=== PATIENT | female | born 1985 ===

== ENCOUNTER 2019-11-20 08:43 | Observation (INO) | payer OTHER, SELFPAY ==
[2019-11-20] VITALS (7 sets, daily range): BP systolic 120–149; BP diastolic 58–70; PULSE 84–108; BMI 33.5
[2019-11-20] MEDS: TERBUTALINE SULFATE 1 MG/ML VIAL (09:18)
--- NOTE | 2019-11-20 09:32 | OBADM ---
This patient, Malissa Christian, admitted to the OB room OB Post 115 for observation. Patient/family oriented to hospital policies and general routines including ID bracelet, bed and alarms, visiting hours, pain management, procedures, bathroom and other care routines, personal items, smoking policy, room service/diet, and visiting hours. Patient/Family are encouraged to report perceived risks to care and to ask questions if they do not understand what they are told or what they should do.
[2019-11-20 10:05] LABS: Fetal Fibronectin Positive
--- NOTE | 2019-11-20 10:35 | PM.OBTRLD ---
OB - Triage/Final Diagnosis Visit Information Date of evaluation: 11/20/19 Reason for evaluation: threatened labor Evaluation Laboratory results: Laboratory Tests 11/20/19 09:25 Fibronectin Positive Vital signs: Vital Signs - 24 hr 11/20/19 08:51 11/20/19 09:01 11/20/19 09:16 Pulse Rate 87 84 90 Blood Pressure 149/70 H 120/65 129/69 11/20/19 09:31 11/20/19 09:46 11/20/19 10:01 Pulse Rate 96 108 H 99 Blood Pressure 130/58 L 131/70 122/60 11/20/19 10:16 Pulse Rate 98 Blood Pressure 126/66
== END 2019-11-20 10:50 | disposition home or self-care (01) ==
PROVIDERS: Admitting Provider Obstetrics & Gynecology; Visit Provider Obstetrics & Gynecology
DX: O47.9 False labor, unspecified (principal); Z3A.00 Weeks of gestation of pregnancy not specified
CPT/HCPCS: 82731; 96372; G0378; G0379; J3105

== ENCOUNTER 2020-02-23 10:24 | Outpatient (RCR) | payer OTHER, SELFPAY ==
[2020-01-19 11:28] VITALS: BP 115/68; PULSE 81
[2020-01-26 10:36] VITALS: BP 125/75; PULSE 107
[2020-02-02 09:34] VITALS: BP 129/79; PULSE 92
[2020-02-08 11:59] VITALS: BP 124/72; PULSE 103
[2020-02-14 09:10] VITALS: BP 124/68; PULSE 111
[2020-02-23 11:09] VITALS: BP 117/73; PULSE 96
== END 2020-02-28 10:30 | disposition home or self-care (01) ==
LOC: ANHOBOP 10:24
PROVIDERS: PCP Internal Medicine Geriatric Medicine; Visit Provider Obstetrics & Gynecology
DX: O69.89X0 Labor and delivery complicated by other cord complications, not applicable or unspecified (principal); Z3A.33 33 weeks gestation of pregnancy; Z3A.34 34 weeks gestation of pregnancy; Z3A.35 35 weeks gestation of pregnancy; Z3A.36 36 weeks gestation of pregnancy; Z3A.38 38 weeks gestation of pregnancy
CPT/HCPCS: 59025

== ENCOUNTER 2020-02-28 04:26 | Inpatient (IN) | payer OTHER, SELFPAY ==
[2020-02-28] VITALS (64 sets, daily range): BP systolic 104–150; BP diastolic 58–133; PULSE 75–122; RESP 16–18; TEMP 36.3–37.1; O2SAT 98–100; BMI 35.3
[2020-02-28] MEDS: LACTATED RINGERS 1,000 ML 125 ML IV CONT ×2 (04:50→05:38)
[2020-02-28 05:10] LABS: Basophils Absolute Auto 0.1 K/mm3 (0.0-0.1); Basophils Percent Auto 0.8 % (0.2-1.2); Eosinophils Absolute Auto 0.7 K/mm3 (0-0.3); Eosinophils Percent Auto 4.9 % (0-4.4); Hematocrit 38.7 % (37.0-47.0); Hemoglobin 13.2 g/dL (12.0-15.0); Immature Granulocyte Absolute 0.07 K/mm3 (0.00-0.031); Immature Granulocyte Percent A 0.5 % (0-0.5); Lymphocytes Absolute Auto 3.16 K/mm3 (0.9-3.2); Lymphocytes Percent Auto 23.9 % (18.3-44.2); Mean Corpuscular HGB Conc 34.1 g/dl (32-36); Mean Corpuscular Hemoglobin 30.2 pg (26-34); Mean Corpuscular Volume 88.6 fl (80-100); Mean Platelet Volume 9.7 fl (7.4-10.4); Monocytes Absolute Auto 1.2 K/mm3 (0.1-0.6); Neutrophils Percent Auto 60.9 % (45.5-73.1); Platelet Count Result 379 k/mm3 (150-375); Red Blood Count 4.37 M/mm3 (4.2-5.4); Red Cell Distribution Width 13.4 % (11.5-14.5); White Blood Count 13.2 K/mm3 (4.5-10.0)
--- NOTE | 2020-02-28 05:12 | LDADM ---
This patient, Malissa Christian, was admitted to Labor/Delivery/Recovery 108 on 02/28/20 at 04:37. Plans for labor, pain management and were discussed with patient. Patient/family oriented to hospital policies and general routines including ID bracelet, bed and alarms, visiting hours, pain management, procedures, bathroom and other care routines, personal items, smoking policy, room service/diet and guest tray routines, security routines, and visiting hours. Patient/Family are encouraged to report perceived risks to care and to ask questions if they do not understand what they are told or what they should do. See OBIX for further documentation.
--- NOTE | 2020-02-28 05:38 | WPDANESEPPF ---
Anes - Initial Pre Proc Eval Procedure: labor epidural Date/Time: 02/28/20 05:38 Surgeon: Luís Blanton MD Pre Op Diagnosis: labor pain Pre Op Diagnosis: CTX Patient Data Age: 35 Gender: F Height: Weight: Last Vital Signs Pulse 120 H 02/28/20 05:37 BP 106/78 02/28/20 05:37 Pulse Ox 100 02/28/20 05:37 Allergies Allergy/AdvReac Type Severity Reaction Status Date / Time shellfish derived Allergy Unknown Swelling Verified 11/20/19 09:14 Sulfa (Sulfonamide Allergy Unknown Rash Verified 01/27/18 11:12 Antibiotics) SHELLFISH Allergy Mild swelling Uncoded 10/27/17 12:27 Home Medications Medication Instructions Recorded Confirmed Type PNV cmb#95-ferrous fumarate-FA 1 tablet PO DAILY 11/20/19 02/23/20 History [] Laboratory Tests 02/28/20 02/28/20 05:00 05:00 WBC 13.2 K/mm3 H K/mm3 (4.5-10.0) RBC 4.37 M/mm3 M/mm3 (4.2-5.4) Hgb 13.2 g/dL g/dL (12.0-15.0) Hct 38.7 % % (37.0-47.0) MCV 88.6 fl fl (80-100) MCH 30.2 pg pg (26-34) MCHC 34.1 g/dl g/dl (32-36) RDW 13.4 % % (11.5-14.5) Plt Count 379 k/mm3 H k/mm3 (150-375) MPV 9.7 fl fl (7.4-10.4) Immature Gran % (Auto) 0.5 % % (0-0.5) Neut % (Auto) 60.9 % % (45.5-73.1) Lymph % (Auto) 23.9 % % (18.3-44.2) [place] % (Auto) 9.0 % H % (2.6-8.5) Eos % (Auto) 4.9 % H % (0-4.4) Baso % (Auto) 0.8 % % (0.2-1.2) Lymph # (Auto) 3.16 K/mm3 K/mm3 (0.9-3.2) [place] # (Auto) 1.2 K/mm3 H K/mm3 (0.1-0.6) Eos # (Auto) 0.7 K/mm3 H K/mm3 (0-0.3) Baso # (Auto) 0.1 K/mm3 K/mm3 (0.0-0.1) Abs Immat Gran (auto) 0.07 K/mm3 H K/mm3 (0.00-0.031) Absolute Neuts (auto) 8.0 K/mm3 H K/mm3 (1.3-6.7) Absolute Nucleated RBC 0.0 K/mm3 K/mm3 (0.0-0.012) Nucleated RBC % 0.0 % % (0.0-0.2) RPR Pending Patient hx anesthesia problems: none Family hx anesthesia problems: none [facility] Family History Family History (Updated 01/27/18 @ 11:17 by DOCTOR UNKNOWN) Father Family history of hypercholesterolemia Hypertension Other Family history of Alzheimer's disease Family history of arthritis Family history of coronary artery disease Family history of hearing loss Family history of lung cancer Social History Social History Smoking status: Never smoker Alcohol intake: never Anes - Eval Final PreProcedure Day of Procedure 02/28/20 05:38 Patient weight: obese ASA classification: II Anesthesia type and monitoring: regional epidural Informed Consent: The patient's anesthetic plan and its attendant risks and benefits were discussed with the patient/family/POA. Questions were solicited and answers provided to the satisfaction of the patient/family/POA.
[2020-02-28 07:10] LABS: Rapid Plasma Reagin Non-Reactive (NonReactive)
--- NOTE | 2020-02-28 07:10 | WPDOBADMIT ---
Obstetrics - Admit Note Admission Note: record reviewed. Additions to the history and/or subsequent changes in the physical findings follow. 35 y/o at 38 3/7 weeks here with contractions. Cervix 6 cm on admission, labor diagnosed. Now comfortable with epidural. complicated by 2VC. GBS neg. AVSS NST reactive TOCO: contractions every 2-3 min ABD soft, nontender, gravid, vertex Cervix 8/90/0. AROM with clear fluid. EXT nontender A: IUP at term with labor P: Anticipate .
[2020-02-28] MEDS: OXYTOCIN 30 UNITS/NS 500 ML 30 UNITS/500 ML BAG 125 UNITS IV CONT ×2 (07:43→08:53)
--- NOTE | 2020-02-28 08:33 | PM.OBPRVD ---
OB - Delivery Note Procedure Delivery date: 02/28/20 Procedure: Delivery monitor: external FHT and external uterine Route of delivery: Laceration Description: Perineal - 1st Degree Delivery repair: vicryl (3-0) Specimen: Yes (cord blood) Quantitative Blood Loss (ml): 125 Anesthesia type: Epidural Disposition: PACU Complications: None Narrative: 35 y/o at 38 3/7 weeks gestation who presented to the hospital with contractions. Labor was diagnosed. She received an epidural for pain control. Amniotomy was performed with return of clear fluid. Her labor progressed and her cervix dilated completely. She pushed with good effort and delivered the infant's head to the perineum. A loose nuchal cord was splinted and the body delivered. The cord was reduced and the nose and mouth were bulb suctioned. After a delay, the cord was clamped and cut. The was handed off the field. Cord blood was collected. The placenta delivered spontaneously and was grossly normal in appearance. The usual 3 vessel cord was noted. A first degree midline perineal laceration was sustained. This was reapproximated using 3 0 Vicryl in two interrupted figure of eight stitches. Excellent hemostasis resulted as did excellent reapproximation of the normal anatomy. Needle and instrument counts were correct. The patient was taken to recovery room in stable condition. The infant went to the nursery in stable condition. I was present and scrubbed for the entire delivery. Baby Date of : 02/28/20 Time of : 08:20 Weeks of gestation at delivery: 38 gender: Male Weight (pounds): 8 Weight (ounces): 2 presentation: vertex position: Right Occiput Anterior Placenta delivery description: Spontaneous and Normal Configuration cord vessel description: 2 Vessels and Nuchal Cord score one minute: 9 score five minutes: 9
--- NOTE | 2020-02-28 11:51 | PC.NURSE ---
Consulted with patient, reviewed feeding cues, frequencies, duration of feedings, feeding elimination flow sheet, and signs of adequate intake. Demonstrated stimulation techniques to wake for feeding. mom feels very comfortable putting the infant to breast. Watched mom latch infant to breast after she hand expressed a large amount of colostrum. Reviewed positioning/alignment, holding breast and asymmetrical latch on. was able to latch correctly. Infant nursed eagerly, with steady draws and frequent swallowing noted. Reviewed signs of a correct latch, effective nursing and suck swallow ratio. was able to maintain latch without discomfort to mother. Nipple care reviewed. Instructed mother to call out for RN assistance if she is unable to latch for feeding or she has discomfort with nursing. Instructed feeding should be initiated three hours from start of last feeding or if feeding cues are noted before. Mother voiced understanding of information shared.
[2020-02-28] MEDS: IBUPROFEN 600 MG TABLET PO ×2 (15:17→23:50)
[2020-02-29 05:18] LABS: Hematocrit 35.6 % (37.0-47.0); Hemoglobin 12.1 g/dL (12.0-15.0)
--- NOTE | 2020-02-29 08:02 | WPDANLDPN2 ---
Anes-Prog Note L&D Date/Time: 02/29/20 08:02 Comfortable throughout: labor and delivery Neuraxial method: epidural Epidural/Spinal procedure site: clean & non-tender Neuro status: Neuro function grossly intact. Cardiovascular status: normal Respiratory status: normal Airway patency: baseline Mental status: baseline Post-Op hydration status: normal Vital Signs: Last Vital Signs Temp 36.8 C 02/28/20 19:20 Pulse 82 02/28/20 19:20 Resp 16 02/28/20 19:20 BP 135/84 02/28/20 19:20 Pulse Ox 99 02/28/20 19:20 Pain score (VAS): 0 Post-procedural complaints: none Patient feedback: Patient satisfied with anesthetic care.
[2020-02-29 08:50] VITALS: BP 137/81; PULSE 88; RESP 16; TEMP 37.2; O2SAT 100
--- NOTE | 2020-02-29 08:59 | P.PNOB_ITS ---
OB - PN: Subj Subjective Date/time seen: 02/29/20 08:59 Narrative: Pain OK. Would like circumcision for son. OB - PN: Obj Data Labs CBC & Chem 7: 02/29/20 04:51 Labs: Laboratory Results - last 24 hr 02/29/20 04:51 Hgb 12.1 Hct 35.6 L OB - PN A/P Plan Comments: A: PPD#1, doing well. P: Routine care. Reviewed circ. Exam 2 Psych: Other: AVSS ABD soft, nontender, fundus firm EXT nontender
--- NOTE | 2020-02-29 09:31 | PC.NURSE ---
Spoke with mom today, no questions with . Mom states is feeding well at the breast. Mom has some concerns with vomiting that she has shared with primary nurse and senior python developer. Mother verbalizes she is able to independently latch infant with appropriate positioning/alignment. She denies any nipple discomfort, is feeding as required and waking to feed if needed. has had an adequate amount of effective feedings in the past 24 hours, and is currently meeting outcomes for weight, output, jaundice and feeding frequencies. Mother states she feels confident to continue effective at home. Reviewed transition to breast milk, signs of adequate intake, and engorgement/relief. Instructed to call ICP if intake/output less than required. Reviewed community resources on the [facility] website and in the Mom/Baby guide. Information on outpatient services provided. Mother has no further questions at this time.
[2020-02-29] MEDS: IBUPROFEN 600 MG TABLET PO ×2 (09:42→20:00)
[2020-02-29] MEDS: MULTIVIT/MIN/PREN/FOL AC/IRON TABLET 1 TAB PO (09:42)
[2020-02-29] MEDS: WITCH HAZEL 40 PADS 1 PAD TOPICAL (09:44)
--- NOTE | 2020-02-29 13:57 | P.DS_ITS ---
DS: Admitting Diagnosis Admitting Diagnosis Admitting Diagnosis: labor at term DS: Discharge Diagnosis Discharge Diagnosis (1) (normal spontaneous vaginal delivery): Code(s): O80 - Encounter for full-term uncomplicated delivery Status: Acute OB - DS: Summary OB Procedures : None OB Procedures Intrapartum: Spontaneous Vag Delivery OB Procedures: : None DS: Data Data Completed and Pending Pending studies at discharge: Pending at discharge 02/28/20 11:27 Surgical [PTH] Routine Labs on day of discharge: Labs from last 24 hours 02/29/20 04:51 Hgb 12.1 Hct 35.6 L Discharge Plan Discharge Attending physician on discharge: Luís lBanton Discharging Clinician: Luís Blanton Patient Disposition: Home, Self-Care Activity: pelvic rest Diet: regular Discharge Instructions: Call or return if temperature above 100.4? F, increased abdominal pain, increased vaginal bleeding or any new problems. Stand Alone Forms: General Discharge Information Follow-up/Referrals: Luís Blanton MD [Physician] - 6 Weeks Discharge Medications: New ibuprofen 600 mg tablet 600 mg PO Q6H PRN (Reason: cramps) Qty: 30 RF: 0 No Action PNV cmb#95-ferrous fumarate-FA [] 28 mg iron- 800 mcg Tablet 1 tablet PO DAILY RF: 0 Date of admission: 02/28/20 04:37 Primary Care Provider: PHYSICIAN,COMMUNITY INTEGRATION SPECIALIST Admitting Provider: Luís Blanton Attending physician on admission: Luís Blanton Condition: Stable
[2020-02-29 20:00] VITALS: BP 133/85; PULSE 93; RESP 18; O2SAT 100
[2020-03-01] MEDS: MULTIVIT/MIN/PREN/FOL AC/IRON TABLET 1 TAB PO (08:30)
--- NOTE | 2020-03-01 08:52 | PM.OBPNVD ---
OB - PN: Subj Subjective Date/time seen: 03/01/20 08:52 OB - PN: Obj Data Labs CBC & Chem 7: 02/29/20 04:51
--- NOTE | 2020-03-01 08:57 | PM.OBPNVD ---
OB - PN: Subj Subjective Date/time seen: 03/01/20 08:57 Narrative: Pain OK. Would like to go home. OB - PN: Obj Data Labs CBC & Chem 7: 02/29/20 04:51 OB - PN A/P Plan Comments: A: PPD#2, doing well. P: Home to f/u 6 weeks. Exam Psych: Other: AVSS ABD soft, nontender, fundus firm EXT nontender
[2020-03-01 09:05] VITALS: BP 128/92; PULSE 81; RESP 18; TEMP 37.3; O2SAT 98
--- NOTE | 2020-03-01 10:37 | PC.NURSE ---
Patient viewed the discharge video Mother & Baby Care, The First Two Weeks . Patient was given the opportunity and encouraged to ask questions. Patient verbalized understanding of information shared and has been given the mother/baby guide for home reference.
[2020-03-02 14:56] VITALS: BP 155/84; PULSE 88; RESP 20; TEMP 37.2; O2SAT 100
== END 2020-03-01 11:15 | disposition home or self-care (01) | DRG 807 ==
LOC: ANHLDR 04:37 → ANHOB2 11:16
PROVIDERS: Admitting Provider Obstetrics & Gynecology; Visit Provider Obstetrics & Gynecology
DX: O69.81X0 Labor and delivery complicated by cord around neck, without compression, not applicable or unspecified (principal); Z37.0 Single live birth; O70.0 First degree perineal laceration during delivery; Z3A.38 38 weeks gestation of pregnancy
CPT/HCPCS: 36415; 85014; 85018; 85025; 86592; 86850; 86900; 86901; 88307; A9270; J2590; J2795; J7120

== ENCOUNTER 2022-06-06 13:27 | Outpatient (RCR) | payer OTHER, SELFPAY ==
[2022-06-06 14:42] LABS: Beta HCG Quantitative 7.37 mIU/ML
[2022-06-10 13:54] LABS: Progesterone 0.7 ng/mL (***)
== END 2022-09-04 23:59 | disposition home or self-care (01) ==
LOC: ANHLAB 13:27
PROVIDERS: Visit Provider Obstetrics & Gynecology
DX: O20.0 Threatened abortion (principal); Z3A.00 Weeks of gestation of pregnancy not specified
CPT/HCPCS: 36415; 84144; 84702

== ENCOUNTER 2023-02-01 09:08 | Outpatient (RCR) | payer OTHER, SELFPAY ==
[2023-02-01 09:30] VITALS: BP 132/76; PULSE 96
[2023-02-01 10:08] VITALS: BP 132/76; PULSE 101
== END 2023-05-02 23:59 | disposition home or self-care (01) ==
LOC: ANHLDR 09:08
PROVIDERS: Visit Provider Obstetrics & Gynecology
DX: O36.8920 Maternal care for other specified fetal problems, second trimester, not applicable or unspecified (principal); Z3A.26 26 weeks gestation of pregnancy
CPT/HCPCS: 59025

== ENCOUNTER 2023-04-26 07:31 | Inpatient (IN) | payer OTHER, SELFPAY ==
[2023-04-26] VITALS (39 sets, daily range): BP systolic 125–175; BP diastolic 58–105; PULSE 74–110; RESP 18; TEMP 36.4–36.9; O2SAT 96–100; BMI 35.2
[2023-04-26 08:19] LABS: Basophils Absolute Auto 0.1 K/mm3 (0.0-0.1); Basophils Percent Auto 0.6 % (0.2-1.2); Eosinophils Absolute Auto 0.4 K/mm3 (0-0.3); Eosinophils Percent Auto 3.2 % (0-4.4); Hematocrit 41.4 % (37.0-47.0); Hemoglobin 14.1 g/dL (12.0-15.0); Immature Granulocyte Absolute 0.05 K/mm3 (0.00-0.031); Immature Granulocyte Percent A 0.4 % (0-0.5); Lymphocytes Absolute Auto 2.41 K/mm3 (0.9-3.2); Lymphocytes Percent Auto 19.4 % (18.3-44.2); Mean Corpuscular HGB Conc 34.1 g/dl (32-36); Mean Corpuscular Hemoglobin 30.7 pg (26-34); Mean Platelet Volume 10.1 fl (7.4-10.4); Monocytes Percent Auto 7.7 % (2.6-8.5); Neutrophils Absolute Auto 8.5 K/mm3 (1.3-6.7); Neutrophils Percent Auto 68.7 % (45.5-73.1); Platelet Count Result 324 k/mm3 (150-375); Red Cell Distribution Width 13.9 % (11.5-14.5); White Blood Count 12.4 K/mm3 (4.5-10.0)
--- NOTE | 2023-04-26 08:22 | LDADM ---
This patient, Malissa Christian, was admitted to Labor/Delivery/Recovery 106 on 04/26/23 at 07:31. Plans for labor, pain management and were discussed with patient. Patient/family oriented to hospital policies and general routines including ID bracelet, bed and alarms, visiting hours, pain management, procedures, bathroom and other care routines, personal items, smoking policy, room service/diet and guest tray routines, security routines, and visiting hours. Patient/Family are encouraged to report perceived risks to care and to ask questions if they do not understand what they are told or what they should do. See OBIX for further documentation.
[2023-04-26] MEDS: LACTATED RINGERS 1,000 ML 125 ML IV CONT ×2 (08:39→09:27)
[2023-04-26 09:10] LABS: HIV 1/2 Ab P24 Ag Result Negative (Negative)
[2023-04-26] MEDS: OXYTOCIN 30 UNITS/NS 500 ML 30 UNITS/500 ML BAG 999 UNITS IV CONT (09:38)
--- NOTE | 2023-04-26 09:56 | WPDOBADMIT ---
Obstetrics - Admit Note Admission Note: record reviewed. No pertinent additions to the history and/or any subsequent changes in the physical findings that are not consistent with the expected course of the were found. Additions to the history and/or subsequent changes in the physical findings follow. Patient arrived in labor at 3 cm and is now 6/90/-1. Epidural just placed. AROM with clear fluid noted. FHTs reactive. BP's in 140's/80's since admit 128-175/84-105 but labor rapidly progressing. Will observe. No PIH symptoms. Continue expectant management.
--- NOTE | 2023-04-26 10:06 | WPDANESEPP ---
Anes - Eval Pre Procedure Procedure: Labor Epidural Date/Time: 04/26/23 10:06 Surgeon: Yuko Preop Diagnosis: Labor Pain Pre Op Diagnosis: Contractions Patient Data Age: 38 Gender: F Height: 1.75 m Weight: 108 kg Last Vital Signs Temp 36.4 C L 04/26/23 09:32 Pulse 84 04/26/23 10:01 BP 131/78 04/26/23 10:01 Pulse Ox 100 04/26/23 10:01 O2 Del Method Room Air 04/26/23 08:21 Allergies Allergy/AdvReac Type Severity Reaction Status Date / Time shellfish derived Allergy Unknown Swelling Verified 04/10/23 14:51 Sulfa (Sulfonamide Allergy Unknown Rash Verified 04/10/23 14:51 Antibiotics) SHELLFISH Allergy Mild swelling Uncoded 10/27/17 12:27 Home Medications Medication Instructions Recorded Confirmed Type vit no.95-ferrous 1 tablet PO DAILY 11/20/19 04/26/23 History fumarate 28 mg-folic acid 800 mcg tablet () Laboratory Tests 04/26/23 08:10 WBC 12.4 H K/mm3 (4.5-10.0) RBC 4.60 M/mm3 (4.2-5.4) Hgb 14.1 g/dL (12.0-15.0) Hct 41.4 % (37.0-47.0) MCV 90.0 fl (80-100) MCH 30.7 pg (26-34) MCHC 34.1 g/dl (32-36) RDW 13.9 % (11.5-14.5) Plt Count 324 k/mm3 (150-375) MPV 10.1 fl (7.4-10.4) Immature Gran % (Auto) 0.4 % (0-0.5) Neut % (Auto) 68.7 % (45.5-73.1) Lymph % (Auto) 19.4 % (18.3-44.2) [place] % (Auto) 7.7 % (2.6-8.5) Eos % (Auto) 3.2 % (0-4.4) Baso % (Auto) 0.6 % (0.2-1.2) Lymph # (Auto) 2.41 K/mm3 (0.9-3.2) [place] # (Auto) 1.0 H K/mm3 (0.1-0.6) Eos # (Auto) 0.4 H K/mm3 (0-0.3) Baso # (Auto) 0.1 K/mm3 (0.0-0.1) Abs Immat Gran (auto) 0.05 H K/mm3 (0.00-0.031) Absolute Neuts (auto) 8.5 H K/mm3 (1.3-6.7) Absolute Nucleated RBC 0.0 K/mm3 (0.0-0.012) Nucleated RBC % 0.0 % (0.0-0.2) RPR Pending HIV 1&2 Ab/P24 Ag 4thGn Negative (Negative) Blood Type AB Positive Antibody Screen Negative Patient hx anesthesia problems: none Family hx anesthesia problems: none Results Review: All pre-operative results and documents have been reviewed as part of the pre-operative evaluation. [facility] Family History Family History Father Family history of hypercholesterolemia Hypertension Other Family history of Alzheimer's disease Family history of arthritis Family history of coronary artery disease Family history of hearing loss Family history of lung cancer Social History Social History Smoking status: Never smoker Alcohol intake: never Substance use: never Do You Feel Safe in your Home?: Yes Lack of Transportation: No Lack of Food: Never True Current Housing: I Have Housing Concerned About Future Housing: No Difficulty Paying Gas/Electric Bills: No Difficulty Paying for Meds: No Currently Unemployed: No Education: Master's Degree or Higher Difficulty w/ Childcare or Family Care: No Gender identity (if verbalized by the patient): Female Sexual Orientation (if Verbalized by the Patient): Straight or Heterosexual Spiritual care concerns: No Exam Day of Procedure 04/26/23 10:06 Patient weight: obese Heart: regular rate and rhythm Lungs: normal air movement Airway: Mallampati scale class II Neurological: alert and oriented
--- NOTE | 2023-04-26 10:28 | PM.OBPRVD ---
OB - Vaginal Delivery Note Procedure Delivery date: 04/26/23 Events: Other (AMA) Induction method: None Delivery monitor: External FHT and External Uterine Route of delivery: Episiotomy description: None Laceration Description: None Specimen: No Quantitative Blood Loss (ml): 100 Anesthesia type: Epidural Disposition: Floor Complications: No immediate complications [place] Baby Date of : 04/26/23 Weeks of gestation at delivery: 38 gender: Female presentation: vertex position: Right Occiput Anterior Placenta delivery description: Spontaneous Cord Vessel Description: 3 Vessels score one minute: 9 score five minutes: 9
--- NOTE | 2023-04-26 10:29 | PM.OBDSVD ---
DS: Admitting Diagnosis Discharge Date 04/27/23 Admitting Diagnosis IUP 38 4/7 wks labor DS: Discharge Diagnosis Discharge Diagnosis (1) (normal spontaneous vaginal delivery): Code(s): O80 - Encounter for full-term uncomplicated delivery Status: Acute OB - DS: Summary OB Procedures : Ultrasound OB Procedures Intrapartum: Spontaneous Vag Delivery OB Procedures: : None Peripartum Data Infant Delivery Method: Natural Vaginal Laceration Description: None Episiotomy description: None complications: none Status at Discharge Functional status at discharge: independent ambulation Overall status at discharge: patient is progressing back to baseline Time Spent with Patient Time attestation: Total time spent providing and/or coordinating discharge services: DS: Data Data Completed and Pending Labs on day of discharge: Labs from last 24 hours 04/26/23 08:10 WBC 12.4 H RBC 4.60 Hgb 14.1 Hct 41.4 MCV 90.0 MCH 30.7 MCHC 34.1 RDW 13.9 Plt Count 324 MPV 10.1 Immature Gran % (Auto) 0.4 Neut % (Auto) 68.7 Lymph % (Auto) 19.4 [place] % (Auto) 7.7 Eos % (Auto) 3.2 Baso % (Auto) 0.6 Lymph # (Auto) 2.41 [place] # (Auto) 1.0 H Eos # (Auto) 0.4 H Baso # (Auto) 0.1 Abs Immat Gran (auto) 0.05 H Absolute Neuts (auto) 8.5 H Absolute Nucleated RBC 0.0 Nucleated RBC % 0.0 RPR Pending HIV 1&2 Ab/P24 Ag 4thGn Negative Blood Type AB Positive Antibody Screen Negative Discharge Plan Discharge Attending physician on discharge: Luís Blanton Consulting providers: Trish Albright Discharging Clinician: Trish Albright Anticipated Discharge Date/Time: 04/27/23 10:34 Patient Disposition: Home, Self-Care Activity: may shower and pelvic rest Diet: regular Wound Care Instructions: follow printed instructions Discharge Instructions: Education: Mom and Baby Guide Given to: Mother Follow-Up: Call your delivering provider's office for an appointment to be seen in: 4 Weeks Mom and baby should come to the [facility] for the follow-up appointment. Appointment Date/Time: April 28, 2023 at 8:00 am What to expect at your follow-up visit: Blood Pressure Check, Physical Assessment Call [phone] if you are unable to keep your appointment time. BREAST CARE: * Wear a snug supportive bra. * For engorgement discomfort: Breast Feeding: * Apply warm moist washcloths * Express milk as needed to relieve engorgement * Wear loose clothing * For sore nipples: * Identify correct latch-on * Apply warm moist washcloths before and after nursing * Air dry nipples after nursing * May apply Lansinoh cream to nipples EPISIOTOMY/PERINEAL CARE: * Until bleeding stops, use your behzad bottle after urinating * Change your pad frequently throughout the day * You may take sitz baths several times a day (fill your bathtub with warm water and soak for 20 minutes.) Do NOT bathe in the water * No tub baths until seen by your physician - You may shower ACTIVITY: * Rest as much as possible. * Do not exercise or lift anything heavier than your baby (such as laundry or other children.) * Avoid stairs or driving as much as possible. * Do not put anything into the vagina. No douching, tampons, or sexual activity until seen by physician. NOTIFY PHYSICIAN IF YOU HAVE ANY QUESTIONS OR IF ANY OF THE FOLLOWING SYMPTOMS OCCUR: * If your vaginal bleeding becomes foul smelling. * If your vaginal bleeding becomes more heavy than a period or if your bleeding changes from pink to bright red. However, you may pass an occasional walnut-sized clot once or twice for the first week . * If you experience a sharp, shooting pain in you calves. * If you discover a hard, reddened area on your breast or if you experience flu-like symptoms. DIET: * Eat regular, well-balanced meals. *
[2023-04-26] MEDS: OXYTOCIN 30 UNITS/NS 500 ML 30 UNITS/500 ML BAG 125 UNITS IV CONT (10:46)
[2023-04-26] MEDS: WITCH HAZEL 40 PADS 1 PAD TOPICAL (12:07)
[2023-04-26] MEDS: BENZOCAINE 20% AER SPR (*SP) 56 GM CAN 1 SPRAY TOPICAL (12:07)
--- NOTE | 2023-04-26 12:54 | OBPPTRN ---
Patient transferred to post room # 283 via wheelchair. Support person present. Oriented to unit, room, information board, rooming in, admission packet and security measures. Patient verbalizes understanding.
[2023-04-27 04:00] VITALS: BP 132/70; PULSE 94; RESP 18; TEMP 36.6; O2SAT 100
[2023-04-27 04:44] LABS: Hematocrit 38.1 % (37.0-47.0); Hemoglobin 12.8 g/dL (12.0-15.0)
[2023-04-27 08:06] VITALS: BP 135/81; PULSE 86; RESP 18; TEMP 36.8; O2SAT 99
--- NOTE | 2023-04-27 10:20 | P.PNOB_ITS ---
OB - PN: Subj Subjective Date/time seen: 04/27/23 0920 Interval history: Doing well. Urinating without difficulty. Denies passing any large clots. Denies dizziness with ambulating. Tolerating po food and fluids. Bonding with infant. Infant latching well. No complaints. Patient comments: no complaints, pain well controlled and tolerating diet [place] baby status: doing well and nursing well feeding status: exclusively breast feeding OB - PN: Obj Data Labs 04/27/23 04:15 Labs: Laboratory Results - last 24 hr 04/27/23 04:15 Hgb 12.8 Hct 38.1 OB - PN A/P Plan day: 1 Plan: discharge home Time Spent With Patient Time: Total time spent is greater than 50% in coordination of care (as documented) at patient's floor/unit and/or counseling patient: Review of Systems Review of Systems: All systems reviewed & are unremarkable except as noted in HPI and below Exam Narrative: Alert and oriented. Mood is pleasant and cooperative. Perineum with minimal edema. Fundus firm and below umbilicus. Const: General: cooperative, healthy appearing, no acute distress and alert Orientation/consciousness: patient oriented x3 Limitations: no limitations Resp: Effort & Inspection: normal respiratory effort and able to speak in complete sentences Auscultation: clear to auscultation bilaterally Cardio: Rate: regular rate GI: Inspection: normal to inspection Auscultation: normal bowel sounds : General: Yes bladder normal to palpation External Female Exam: other (lochia WNL) Bimanual exam- vagina & uterus: bladder normal to palpation Other: Fundus firm and below U Skin: General skin exam: normal color and no rashes or lesions noted Neuro: General: patient oriented x3 and moves all extremities Cognition (Neuro): normal cognition Extrem: General: normal to inspection and no calf tenderness Psych: Appearance: grossly normal Mental Status: mental status grossly normal Affect: normal affect Thought process: Normal thought process present
--- NOTE | 2023-04-27 11:20 | PC.NURSE ---
Patient received instruction on viewing the discharge video Mother & Baby Care, The First Two Weeks online. Patient was given the opportunity and encouraged to ask questions. Patient verbalized understanding of information shared and has been given the mother/baby guide for home reference.
[2023-04-28 15:50] LABS: Rapid Plasma Reagin Non-Reactive (NonReactive)
== END 2023-04-27 11:20 | disposition home or self-care (01) | DRG 807 ==
LOC: ANHLDR 10:34 → ANHOB2 04-27 10:21 → ANHLDR 04-29 08:50 → ANHOB2 04-29 08:50
PROVIDERS: Admitting Provider Obstetrics & Gynecology Gynecology; Visit Provider Obstetrics & Gynecology Gynecology
DX: O80 Encounter for full-term uncomplicated delivery (principal); Z37.0 Single live birth; Z3A.38 38 weeks gestation of pregnancy
CPT/HCPCS: 36415; 85014; 85018; 85025; 86592; 86703; 86850; 86900; 86901; A9270; G0432; J2590; J2795; J7120

== ENCOUNTER 2024-04-15 11:36 | Outpatient (CLI) | payer SELFPAY | END 2024-04-15 11:37 | disposition home or self-care (01) | PROVIDERS: PCP Family Medicine; Visit Provider Family Medicine | DX: M87.875 Other osteonecrosis, left foot (principal) | CPT/HCPCS: 73630 ==